=== PATIENT | male | born 1965 | race Caucasian/White ===

== ENCOUNTER 2017-03-08 13:21 | Emergency (ER) | payer BC ==
[~2017-03-08] VITALS: Ht 157.5 cm; Wt 86.5 kg
[~2017-03-08 13:21] MED LIST: CYCL-319 PO; HYDR-3498 PO; IBUP-1542 PO
[2017-03-08 13:27] VITALS: Ht 157.5 cm; Wt 86.5 kg
[2017-03-08] MEDS ORDERED: KETOROLAC 60 MG INJ IM STA (14:56)
[2017-03-08] MEDS ORDERED: PRED20TA PO (15:43)
[2017-03-08] MEDS ORDERED: TRAM-40 PO (15:43)
[2017-03-08] MEDS ORDERED: IBUP-1542 PO (15:43)
--- NOTE | 2017-03-08 15:48 | ERD ---
ER Documentation Chief Complaint Date/Time DATE: 03/08/17 TIME: 15:46 Chief Complaint Complains of left arm pain x 2 days HPI This 51-year-old male presents with left arm pain for last 2 days. He did awake with the pain. He denies any history of trauma. The pain radiates from his neck to his hand. Denies any weakness. Denies any fevers, chest pain, shortness breath, additional symptoms. ROS All systems reviewed and are negative except as per history of present illness. Medications Home Meds Active Scripts Tramadol Hcl* (Ultram*) 50 Mg Tablet, 50 MG PO Q6H Y for PAIN, #14 TAB Prov:MAGGI KHAN MD 03/08/17 Prednisone* (Prednisone*) 20 Mg Tab, 40 MG PO DAILY for 5 Days, TAB Prov:MAGGI KHAN MD 03/08/17 Ibuprofen* (Motrin*) 600 Mg Tab, 600 MG PO Q6, #20 TAB Prov:MAGGI KHAN MD 03/08/17 Cyclobenzaprine Hcl* (Cyclobenzaprine Hcl*) 10 Mg Tablet, 10 MG PO TID, #15 TAB Prov:KENTON HERNANDEZ NP 12/09/15 Hydrocodone Bit-Acetaminophen* (Jenkins*) 5-325 Mg Tab, 1 TAB PO Q6 Y for PAIN, # 20 TAB Prov:KENTON HERNANDEZ NP 12/09/15 Ibuprofen* (Motrin*) 600 Mg Tab, 600 MG PO Q6H Y for PAIN AND OR ELEVATED TEMP, #30 TAB Prov:KENTON HERNNADEZ NP 12/09/15 Reported Medications [none] Unknown Strength No Conflict Check 12/09/15 Allergies Allergies: Coded Allergies: No Known Drug Allergies (Verified Allergy, Unknown, 03/08/17) PMhx/Soc Medical and Surgical Hx: pt denies Medical Hx, pt denies Surgical Hx History of Surgery: No Anesthesia Reaction: No Hx Neurological Disorder: No Hx Respiratory Disorders: No Hx Cardiac Disorders: No Hx Psychiatric Problems: No Hx Miscellaneous Medical Probl: No Hx Alcohol Use: No Hx Substance Use: No Hx Tobacco Use: No Smoking Status: Never smoker Physical Exam Vitals Vital Signs Date Time Temp Pulse Resp B/P Pulse Ox O2 Delivery O2 Flow Rate FiO2 03/08/17 13:27 98.7 82 20 132/84 96 Physical Exam Const: [] Alert, [id number]. Head: Atraumatic Eyes: Normal Conjunctiva ENT: Normal External Ears, Nose and Mouth. Neck: Full range of motion..~ No meningismus. Mild tenderness in the paracervical muscles and left trapezius. Resp: Clear to auscultation bilaterally Cardio: Regular rate and rhythm, no murmurs Abd: Soft, non tender, non distended. Normal bowel sounds Skin: No petechiae or rashes Back: No midline or flank tenderness Ext: No cyanosis, or edema. No weakness or edema pulses 2+ distally. Neur: Awake and alert cranial nerves II through XII grossly intact. Psych: Normal Mood and Affect Results 24 hrs Current Medications Medications (Trade) Dose Ordered Sig/Malini Route PRN Reason Start Time Stop Time Status Last Admin Dose Admin Ketorolac Tromethamine (Toradol) 60 mg ONCE STAT IM 03/08/17 14:56 03/08/17 14:57 DC Procedures/MDM EKG: Rate/Rhythm: [Normal Sinus Rhythm] rate equals 62 QRS, ST, T-waves: [No changes consistent w/ acute ischemia] Impression: [No evidence of ischemia or arrhythmia] impression abnormal EKG X-ray C spine 3V Interpreted by me: Bones: [No fracture] Joints: [No dislocation] Foreign body: [None] impression have normal C-spine x-ray 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 Symptoms do not suggest acute coronary syndrome, epidural abscess, fracture, dislocation, additional emergent causes of presenting complaints. Tylenol, ibuprofen, short course of prednisone and primary care follow-up and orthopedic referral. Return for fevers, rest pain, shortness of breath, vomiting, new worsening symptoms. The patient was stable with no new complaints during the ER course. Clinically, there is no current evidence to suggest meningitis, sepsis, acute abdomen, pneumonia, acute coronary syndrome, pulmonary embolism, or any other emergent condition appearing to require further evaluation or hospitalization. The patient should certainly return for any new or worsening symptoms per the aftercare instructions. They should otherwise follow-up with her primary care doctor for reevaluation this week. Departure Diagnosis: Primary Impression: Pain of left arm Condition: Stable Patient Instructions: Radiculopathy, Cervical Referrals: [facility] Hours: Mon-Fri 9:00 AM - 5:00 PM Additional Instructions: Likely pinched nerve from neck. See orthopedist or primary doctor for further evaluation treatment. May benefit from physical therapy. Recheck for fevers, new or worsening symptoms. MAGGI KHAN MD Mar 08, 2017 15:48
[2017-03-08] MEDS ORDERED: NEOM28OI TP (15:52)
--- NOTE | 2017-03-08 16:08 | RADRPT ---
PROCEDURE: XR cervical spine CLINICAL INDICATION: Neck pain TECHNIQUE: 3 views of the cervical spine obtained COMPARISON: None available FINDINGS: There is adequate visualization on the lateral view down to C6. There is straightening of the lordos is of the cervical spine. No fracture is visualized. Visualized vertebral bodies and disc spaces andres ear maintained in height. No significant degenerative changes are seen. Prevertebral soft tissues ar e unremarkable. IMPRESSION: Suboptimal evaluation of the lower cervical spine. Straightening of the cervical lordosis. RPTAT: VV .Nic Emanuel MD, Date Time Electronically viewed and signed by .Nic Emanuel MD, on 03/08/2017 16:08 .O/
== END 2017-03-08 16:21 | disposition home or self-care (01) ==
LOC: FTE 13:21
DX: M79.602 Pain in left arm (principal)
CPT/HCPCS: 72040; 93005; 96372; 99284; J1885

== ENCOUNTER 2017-03-10 12:32 | Emergency (ER) | payer BC ==
[~2017-03-10] VITALS: Ht 167.6 cm; Wt 86.0 kg
[~2017-03-10 12:32] MED LIST changes: +NEOM28OI TP; +PRED20TA PO; +TRAM-40 PO
[2017-03-10 12:35] VITALS: Ht 167.6 cm; Wt 86.0 kg
[2017-03-10] MEDS ORDERED: GABA600T PO (13:06)
[2017-03-10] MEDS ORDERED: HYDR-902 PO (13:06)
--- NOTE | 2017-03-10 13:08 | ERD ---
ER Documentation Chief Complaint Date/Time DATE: 03/10/17 TIME: 13:07 Chief Complaint left shoulder pain due to unknown reason, employee here, savanna JALLOH Is a 51-year-old male complains of pain to his lateral aspect of his distal humerus radiates down the lateral aspect of the forearm to the mid forearm. Describes a burning deep ache. Patient said he hurt it Epting boxes at work. He was seen in the ER a few days ago and given tramadol, prednisone and Motrin. He says the pain is not helped much by this but if he raises his arm over his head it does help a lot. Most of the pain is much worse at night. He has no weakness and no pain in the chest jaw or back shortness of breath. ROS All systems reviewed and are negative except as per history of present illness. Medications Home Meds Active Scripts Gabapentin* (Neurontin*) 600 Mg Tablet, 600 MG PO BID, #60 TAB Prov:REGINALD KAUR DO 03/10/17 Hydrocodone/Acetaminophen (Thebes 10-325 Tablet) 1 Each Tablet, 1 TAB PO Q6H Y for PAIN, #30 TAB Prov:REGINALD KAUR DO 03/10/17 Neomycin Cheung/Bacitrac Zn/Poly (Triple Antibiotic Ointment) 28 Gm Oint...g., 28 GM TP TID for 7 Days Prov:MAGGI KHAN MD 03/08/17 Tramadol Hcl* (Ultram*) 50 Mg Tablet, 50 MG PO Q6H Y for PAIN, #14 TAB Prov:MAGGI KHAN MD 03/08/17 Prednisone* (Prednisone*) 20 Mg Tab, 40 MG PO DAILY for 5 Days, TAB Prov:MAGGI KHAN MD 03/08/17 Ibuprofen* (Motrin*) 600 Mg Tab, 600 MG PO Q6, #20 TAB Prov:MAGGI KHAN MD 03/08/17 Cyclobenzaprine Hcl* (Cyclobenzaprine Hcl*) 10 Mg Tablet, 10 MG PO TID, #15 TAB Prov:KENTON HERNANDEZ NP 12/09/15 Hydrocodone Bit-Acetaminophen* (Thebes*) 5-325 Mg Tab, 1 TAB PO Q6 Y for PAIN, # 20 TAB Prov:CUISKENTON GALEANO NP 12/09/15 Ibuprofen* (Motrin*) 600 Mg Tab, 600 MG PO Q6H Y for PAIN AND OR ELEVATED TEMP, #30 TAB Prov:KENTON HERNANDEZ MELARA T[facility]OOK 12/09/15 Reported Medications [none] Unknown Strength No Conflict Check 12/09/15 Allergies Allergies: Coded Allergies: No Known Drug Allergies (Verified Allergy, Unknown, 03/08/17) PMhx/Soc History of Surgery: No Anesthesia Reaction: No Hx Neurological Disorder: No Hx Respiratory Disorders: No Hx Cardiac Disorders: No Hx Psychiatric Problems: No Hx Miscellaneous Medical Probl: No Hx Alcohol Use: No Hx Substance Use: No Hx Tobacco Use: No FmHx Family History: No coronary disease Physical Exam Vitals Vital Signs Date Time Temp Pulse Resp B/P Pulse Ox O2 Delivery O2 Flow Rate FiO2 03/10/17 12:35 97.2 87 18 146/84 98 Physical Exam Const: Well-developed, well-nourished Head: Atraumatic, normocephalic Eyes: Normal Conjunctiva, PERRLA, EOMI, normal sclera, no nystagmus ENT: Normal External Ears, Nose and Mouth, moist mucus membranes. Neck: Full range of motion. No meningismus, no lymphadenopathy. Resp: Clear to auscultation bilaterally, no wheezing, rhonchi, rales Cardio: Regular rate and rhythm, no murmurs, S1 S2 present Abd: Soft, non tender x 4, non distended. Normal bowel sounds, no guarding or rebound, no pulsitile abdominal masses or bruits Skin: No petechiae or rashes, no ecchymosis , no maculopapular rash Back: No midline or flank tenderness Ext: No cyanosis, or edema, FROM x 4, normal inspection, neurovascularly intact x 4, there is tenderness to the lateral aspect of the distal humerus is reproducible to palpation as well as on the forearm. Pushing on this area will cause a shooting pain down the forearm Neur: Awake and alert, STR 5/5 x 4, sensation intact x 4, no focal findings, cerebellum intact Psych: Normal Mood and Affect Procedures/MDM Patient has a neuropathy and will take some time to heal. We will add some gabapentin and Thebes to his pain control Departure Diagnosis: Primary Impression: Neuropathy Condition: Stable Patient Instructions: Neuropathy, Peripheral REGINALD KAUR DO Mar 10, 2017 13:08
== END 2017-03-10 14:17 | disposition home or self-care (01) ==
LOC: FTE 12:32
DX: G62.9 Polyneuropathy, unspecified (principal)
CPT/HCPCS: 99284